=== PATIENT | male | born 1980 | race Caucasian/White ===

== ENCOUNTER 2018-03-30 00:55 | Emergency (ER) | payer MEDICAID, OTHER ==
[2018-03-30] MEDS: IBUPROFEN 800 MG TAB PO (02:27)
[2018-03-30] MEDS: METHOCARBAMOL 750 MG TAB PO (03:06)
== END 2018-03-30 03:26 | disposition home or self-care (01) ==
LOC: FTE 00:55
DX: M25.561 Pain in right knee (principal); R40.2412 Glasgow coma scale score 13-15, at arrival to emergency department; F17.210 Nicotine dependence, cigarettes, uncomplicated
CPT/HCPCS: 73564; 99283-25